=== PATIENT | female | born 1950 | race Caucasian/White ===

== ENCOUNTER → 2020-11-03 | Outpatient (CLI) | payer OTHER, MEDICAID ==
[2020-11-03] VITALS (16 sets, daily range): BP systolic 115–141; BP diastolic 57–95
[~2020-11-03] VITALS: Ht 177.8 cm; Wt 65.8 kg
[2020-11-03 08:36] LABS: ABSOLUTE BASOPHILS 0.2 thou/uL (0.0-0.2); ABSOLUTE EOSINOPHILS 0.7 thou/uL (0.0-0.7); ABSOLUTE LYMPHOCYTES 2.3 thou/uL (0.8-5.3); ABSOLUTE MONOCYTES 1.7 thou/uL (0.0-1.2); ABSOLUTE NEUTROPHILS 7.7 thou/uL (1.6-8.1); BASOPHILS 1.7 %; CALCIUM 8.8 mg/dL (8.5-10.1); CREATININE 1.2 mg/dL (0.6-1.3); EOSINOPHILS 5.6 %; HEMATOCRIT 37.2 % (37.0-47.0); HEMOGLOBIN 12.6 gm/dL (12.0-15.0); MCH 32.5 pg (26.0-34.0); MCV 95.5 fL (80.0-100.0); MONOCYTES 13.5 %; MPV 8.5 fl. (7.2-11.1); NUCLEATED RBCS 0 /100WBC; PLATELET COUNT* 330 thou/uL (150-400); POLYS 61.2 %; POTASSIUM 3.5 mmol/L (3.5-5.1); RBC 3.89 mil/uL (4.20-5.00); RDW-CV 13.7 % (10.5-14.5); WBC 12.6 thou/uL (4.0-11.0)
[2020-11-03 08:49] LABS: APTT 27.4 Seconds (25.0-31.3); PROTIME 11.1 Seconds (9.20-11.50)
--- NOTE | 2020-11-07 14:07 | PATH ---
[address] [address] PATHOLOGY RPT PROCEDURE Name: LEONARD WASHINGTON GENE Room: [facility] Malena#: [id number] Admission: 11/03/20 Date of : 46 Discharge: Report #: [id number] Path Case #: [id number] [facility] Accession Number: [id number] . 01 Material submitted: . lung - RT LUNG MASS. Modifiers: right . 01 Clinician provided ICD-10: / . 02 Diagnosis: Right upper lobe lung mass, image-guided core biopsy: - NONMUCINOUS BRONCHOGENIC ADENOCARCINOMA, APPROXIMATELY 70% LEPIDIC PATTERN, 30% PAPILLARY PATTERN. SEE COMMENT. (SERJIO:krystal; ) S 11/07/2020 1019 Local . 02 Comment: Preliminary findings discussed with Dr. Sommer at approximately 10:30 on 11/06/2020. Reviewed with Dr. Nubia Troncoso on 11/06/2020, who agrees with the diagnosis. (SERJIO:kyrstal; 11/07/2020) . 02 Electronically signed: . Deo Soria MD, Pathologist NPI- [id number] . 01 Gross description: . Received in formalin labeled "Leonard Washington and right upper lobe, lung". Received are multiple lung core fragments ranging from 0.1-0.2 cm. The specimen is entirely submitted in cassette A1.(J; 11/03/2020) BLJ/J 11/07/2020 1016 Local . 02 Pathologist provided ICD-10: C34.11 . 02 CPT . 959817 Specimen Comment: A courtesy copy of this report has been sent to [phone], [phone] Specimen Comment: [id number] Specimen Comment: Report sent to / DR DONALD Performed at: [address] [id number] MD Last Morley MD Phone: [phone] Performed at: 02 [place] [address] PATHOLOGY RPT PROCEDURE Name: LEONARD WASHINGTON GENE Room: [facility]#: [id number] Admission: 11/03/20 Date of : 46 Discharge: Report #: [id number] Path Case #: [id number] [address] [place] [id number] MD Deo Soria MD Phone: [phone]
== END | disposition home or self-care (01) ==
LOC: M.CT 07:34
PROVIDERS: Radiology Diagnostic Radiology; ATTEND Internal Medicine Hematology & Oncology
DX: C34.11 Malignant neoplasm of upper lobe, right bronchus or lung (principal); R91.8 Other nonspecific abnormal finding of lung field; F17.210 Nicotine dependence, cigarettes, uncomplicated; Z86.73 Personal history of transient ischemic attack (TIA), and cerebral infarction without residual deficits